=== PATIENT | female | born 1945 | race Caucasian/White ===

== ENCOUNTER 2022-08-28 11:02 | Outpatient (CLI) | payer MEDICARE | END 2022-08-28 11:03 | disposition home or self-care (01) | LOC: CSHMAMMO 11:02 | PROVIDERS: ATTEND Internal Medicine Rheumatology | DX: M85.80 Other specified disorders of bone density and structure, unspecified site (principal); Z78.0 Asymptomatic menopausal state | CPT/HCPCS: 77080 ==

== ENCOUNTER 2022-08-28 12:10 | Outpatient (CLI) | payer MEDICARE | END 2022-08-28 12:11 | disposition home or self-care (01) | LOC: CSHRAD 12:10 | PROVIDERS: ATTEND Internal Medicine Rheumatology | DX: M89.8X1 Other specified disorders of bone, shoulder (principal) ==